=== PATIENT | male | born 1960 | race Asian ===

== ENCOUNTER 2017-10-29 07:55 | Emergency (ER) | payer OTHER ==
[2017-10-29 08:01] VITALS: TEMP 98.1
[2017-10-29] MEDS ORDERED: ONDANSETRON 4 MG/2 ML VIAL ONE (08:09)
[2017-10-29] MEDS ORDERED: DIAZEPAM 10 MG/2 ML SYR ONE (08:09)
[2017-10-29] MEDS ORDERED: NS 1,000 ML IV ONE (08:10)
[2017-10-29] MEDS ORDERED: DIAZEPAM 10 MG/2 ML SYR IVP ONE (08:10)
[2017-10-29] MEDS ORDERED: ONDANSETRON 4 MG/2 ML VIAL IVP ONE (08:10)
--- NOTE | 2017-10-29 08:14 | EDPHY ---
H & P Stated Complaint: awakened with room spinnng and nausea/vomited Time Seen by Provider: 10/29/17 08:02 HPI/ROS: Chief Complaint: Dizzy, nausea, vomiting HPI: 57-year-old male woke this morning with the room spinning. He has vomited multiple times. Denies headache. No falls or injuries. No new numbness or weakness. There are no aggravating or alleviating factors. Please add was worsening is riding in the car over here. Does not seem worse when he turns his head or looks in a particular direction. No fevers or chills. No numbness or weakness. No chest pain or shortness of breath. No abdominal pain. No recent illness. ROS: 10 point Review of Systems is negative except as noted in the HPI. PMH: Anxiety Social History: No smoking, no alcohol, no recreational drug use Family History: non-contributory Physical Exam: Gen: Awake, Alert, No Distress HEENT: Nose: no rhinorrhea Eyes: PERRLA, EOMI, horizontal nystagmus with leftward gaze Mouth: Moist mucosa Neck: Supple, no JVD Chest: nontender, lungs clear to auscultation Heart: S1, S2 normal, no murmur Abd: Soft, non-tender, no guarding Back: no CVA tenderness, no midline tenderness Ext: no edema, non-tender Skin: no rash Neuro: CN II-XII intact, Sensation grossly intact, Strength 5/5 in bilateral upper and lower extremities, negative Kaden-Hallpike - Personal History Current Tetanus/Diphtheria Vaccine: Unsure - Medical/Surgical History Hx Asthma: No Hx Chronic Respiratory Disease: No Hx Diabetes: No Hx Cardiac Disease: No Hx Renal Disease: No Hx Cirrhosis: No Hx Alcoholism: No Hx HIV/AIDS: No Hx Splenectomy or Spleen Trauma: No Other PMH: anxiety - Social History Smoking Status: Never smoked Constitutional: Initial Vital Signs Temperature (C) 36.7 C 10/29/17 07:58 Heart Rate 85 10/29/17 07:58 Respiratory Rate 18 10/29/17 07:58 Blood Pressure 190/72 H 10/29/17 07:58 O2 Sat (%) 98 10/29/17 07:58 O2 Delivery Mode Nasal Cannula O2 (L/minute) 3 Allergies/Adverse Reactions: No Known Allergies Allergy (Unverified 10/29/17 07:58) Home Medications: Medication Instructions Recorded Meclizine HCl [Antivert] 25 mg PO TID PRN #10 tablet 10/29/17 Sertraline HCl 10/29/17 Medical Decision Making Procedures: ED procedure note: Karthikeyan maneuver Indication: Vertigo. Patient underwent the Karthikeyan maneuver with indications of a leftward nystagmus. Patient tolerated the procedure well. Following the maneuver he had improvement of his symptoms. There were no complications. Performed by me. ED Course/Re-evaluation: Patient is improved after the Karthikeyan maneuver and diazepam and Zofran. He is not tolerating p.o.. Dizziness is nearly resolved. He is ambulating without any difficulty. Will discharge with follow-up with primary care physician, return for worsening. Will send home with prescription for meclizine. - Data Points Laboratory Results: Laboratory Results 10/29/17 08:15 10/29/17 08:15 10/29/17 10/29/17 08:15 08:15 WBC 13.88 10^3/uL H 10^3/uL (3.80-9.50) RBC 5.54 10^6/uL 10^6/uL (4.40-6.38) Hgb 17.0 g/dL g/dL (13.7-17.5) Hct 46.2 % % (40.0-51.0) MCV 83.4 fL fL (81.5-99.8) MCH 30.7 pg pg (27.9-34.1) MCHC 36.8 g/dL H g/dL (32.4-36.7) RDW 13.3 % % (11.5-15.2) Plt Count 364 10^3/uL 10^3/uL (150-400) MPV 10.9 fL fL (8.7-11.7) Neut % (Auto) 56.7 % % (39.3-74.2) Lymph % (Auto) 31.0 % % (15.0-45.0) Grand % (Auto) 7.6 % % (4.5-13.0) Eos % (Auto) 3.0 % % (0.6-7.6) Baso % (Auto) 0.9 % % (0.3-1.7) Nucleat RBC Rel Count 0.0 % % (0.0-0.2) Absolute Neuts (auto) 7.87 10^3/uL H 10^3/uL (1.70-6.50) Absolute Lymphs (auto) 4.30 10^3/uL H 10^3/uL (1.00-3.00) Absolute Monos (auto) 1.06 10^3/uL H 10^3/uL (0.30-0.80) Absolute Eos (auto) 0.42 10^3/uL H 10^3/uL (0.03-0.40) Absolute Basos (auto) 0.12 10^3/uL H 10^3/uL (0.02-0.10) Absolute Nucleated RBC 0.00 10^3/uL 10^3/uL (0-0.01) Immature Gran % 0.8 % % (0.0-1.1) Immature Gran # 0.11 10^3/uL H 10^3/uL (0.00-0.10) Sodium 142 mEq/L mEq/L (135-145) Potassium 3.2 mEq/L L mEq/L (3.5-5.2) Chloride 106 mEq/L mEq/L (97-110) Carbon Dioxide 15 mEq/l L mEq/l (22-31) Anion Gap 21 mEq/L H mEq/L (8-16) BUN 23 mg/dL mg/dL (7-23) Creatinine 1.0 mg/dL mg/dL (0.7-1.3) Estimated GFR > 60 Glucose 153 mg/dL H mg/dL (70-100) Calcium 9.7 mg/dL mg/dL (8.5-10.4) Medications Given: Discontinued Medications Diazepam (Valium) 5 mg IVP EDNOW ONE Stop: 10/29/17 08:11 Last Admin: 10/29/17 08:16 Dose: 5 mg Sodium Chloride (Ns) 1,000 mls @ 0 mls/hr IV ONCE ONE; Wide Open PRN Reason: Protocol Stop: 10/29/17 08:11 Last Admin: 10/29/17 08:21 Dose: 1,000 mls Ondansetron HCl (Zofran) 4 mg IVP EDNOW ONE Stop: 10/29/17 08:11 Last Admin: 10/29/17 08:16 Dose: 4 mg Departure - Departure Disposition: Home, Routine, Self-Care Clinical Impression: Benign positional vertigo Condition: Good Instructions: Benign Paroxysmal Positional Vertigo (ED) Additional Instructions: You may take the meclizine as needed for dizziness or vomiting. Follow up with primary care physician in 2-3 days for further evaluation. Return to the emergency department for increasing nausea vomiting, fevers, chills, worsening dizziness, headache, numbness, weakness, or any other concerns. Referrals: Megan Sotelo MD [Medical Doctor] - As per Instructions Prescriptions: Meclizine HCl [Antivert] 25 mg PO TID PRN #10 tablet PRN Reason: Dizziness
[2017-10-29 08:28] LABS: PLATELET COUNT 364 10^3/uL (150-400)
[2017-10-29 09:08] VITALS: RESP 20
[2017-10-29 10:10] VITALS: BP 128/80; PULSE 67; O2SAT 97
== END 2017-10-29 10:14 | disposition home or self-care (01) ==
DX: H81.10 Benign paroxysmal vertigo, unspecified ear (principal); E86.9 Volume depletion, unspecified
CPT/HCPCS: 96374; J2405